=== PATIENT | female | born 1975 | race African-American/Black ===

== ENCOUNTER 2023-06-10 18:39 | Emergency (ER) | payer OTHER ==
[2023-06-10] MEDS ORDERED: Ipratropium/Albuterol 3 ML NEB ONE ×2 (18:51→19:00)
[2023-06-10] MEDS ORDERED: predniSONE 20 MG TAB ONE (19:06)
[2023-06-10] MEDS ORDERED: Magnesium 2 GM/50 ML BAG (IN WATER) ONE (19:07)
[2023-06-10 19:42] LABS: BHCG - Serum Negative (NEGATIVE); Pregs Control Background? CLEAR/WHITE (CLR/WHITE); Pregs Control Bar Appear? YES (CONTROL BAR)
[2023-06-10 19:45] LABS: #Basophils 0.1 10x3/uL (0.0-0.2); #Eosinphils 0.5 10x3/uL (0.0-0.5); #Monocytes 0.6 10x3/uL (0.0-1.1); #Neutrophils 3.7 10x3/uL (1.5-8.4); %Basophils 0.9 % (0.0-2.0); %Eosinophils 7.9 % (0.0-6.0); %Lymphocytes 28.6 % (18.0-47.0); %Monocytes 8.6 % (0.0-10.0); %Neutrophils 53.9 % (40.0-75.0); Hematocrit 32.6 % (34.9-44.5); Hemoglobin 10.5 g/dL (12.0-15.5); Mean Corpuscular HGB CONC 32.2 g/dL (32.0-36.0); Mean Corpuscular Hemoglobin 24.9 pg (27.0-33.0); Mean Corpuscular Volume 77.3 fl (81.6-98.3); Mean Platelet Volume 11.2 fl (7.4-10.4); Platelet Count 217 10x3/uL (150-450); RBC Distribution Width 15.7 % (11.5-14.5); Red Blood Cell (RBC) Count 4.22 10x6/uL (3.90-5.03); White Blood Cell (WBC) Count 6.9 10x3/uL (3.5-10.5)
[2023-06-10 19:48] LABS: ALT (SGPT) 12 U/L (8-55); AST (SGOT) 19 U/L (5-34); Albumin 4.2 g/dL (3.5-5.0); Alkaline Phosphatase 92 U/L (40-110); Anion Gap 14 mmol/L (10-20); BUN (Urea Nitrogen) 11 mg/dL (7.0-18.7); Bilirubin, Total 0.3 mg/dL (0.2-1.2); Calc. Creatinine Clearance 0 mL/min (70-130); Calcium 9.1 mg/dL (7.8-10.44); Carbon Dioxide 23 mmol/L (22-29); Chloride 105 mmol/L (98-107); Estimated GFR 67; Globulin 3.1 g/dL (2.4-3.5); Glucose 90 mg/dL (70-105); Potassium 3.8 mmol/L (3.5-5.1); Protein, Total 7.3 g/dL (6.0-8.3); Sodium 138 mmol/L (136-145)
[2023-06-10 19:51] LABS: Troponin I Less than 0.010 ng/mL (< 0.028)
[2023-06-10 20:04] LABS: Influenza A by NAA Not Detected (NotDetected); Influenza B by NAA Not Detected (NotDetected); SARS-CoV-2 NAA Rapid Test Not Detected (NotDetected)
== END 2023-06-10 20:18 | disposition home or self-care (01) ==
LOC: CSHERS 18:39
DX: J45.901 Unspecified asthma with (acute) exacerbation (principal); D64.9 Anemia, unspecified; R03.0 Elevated blood-pressure reading, without diagnosis of hypertension
CPT/HCPCS: 71045; 80053; 84484; 84703; 85025; 93005; 94640; 96365; J3475; J7512; J7620

== ENCOUNTER 2023-08-08 15:54 | Emergency (ER) | payer OTHER ==
[2023-08-08] MEDS ORDERED: Ipratropium Bromide 2.5 ml Neb ONE ×2 (16:03→16:14)
[2023-08-08] MEDS ORDERED: Albuterol 2.5 MG (0.5 mL) NEB ONE (16:03)
[2023-08-08] MEDS ORDERED: Albuterol 2.5 MG (3 mL) NEB ONE (16:05)
[2023-08-08] MEDS ORDERED: methylPREDNISolone Sod Succ/PF 125 MG/2 ML VIAL ONE (16:07)
== END 2023-08-08 18:24 | disposition home or self-care (01) ==
LOC: CSHERS 15:54
DX: J45.901 Unspecified asthma with (acute) exacerbation (principal)
CPT/HCPCS: 71045; 96374; J2930; J7611

== ENCOUNTER 2023-12-16 13:38 | Emergency (ER) | payer OTHER | END 2023-12-16 17:25 | disposition home or self-care (01) | LOC: CSHERS 13:38 | DX: M77.32 Calcaneal spur, left foot (principal); M76.62 Achilles tendinitis, left leg; I10 Essential (primary) hypertension | CPT/HCPCS: 99283 ==

== ENCOUNTER 2024-01-31 15:01 | Emergency (ER) | payer OTHER ==
[2024-01-31] MEDS ORDERED: Ondansetron PF 4 MG/2 ML Vial ONE (15:20)
[2024-01-31] MEDS ORDERED: Magnesium 2 GM/50 ML BAG (IN WATER) ONE (15:21)
[2024-01-31] MEDS ORDERED: Dexamethasone 10 MG/ML VIAL ONE (15:21)
[2024-01-31] MEDS ORDERED: Aspirin Chewable 81 MG TAB ONE (15:21)
[2024-01-31] MEDS ORDERED: Ipratropium/Albuterol 3 ML NEB ONE (15:26)
[2024-01-31 15:44] LABS: #Basophils 0.06 10x3/uL (0.0-0.2); #Eosinophils 0.51 10x3/uL (0.0-0.5); #Monocytes 0.39 10x3/uL (0.0-1.1); #Neutrophils 2.62 10x3/uL (1.5-8.4); %Basophils 1.2 % (0.0-2.0); %Eosinophils 9.8 % (0.0-6.0); %Lymphocytes 30.8 % (18.0-47.0); %Monocytes 7.5 % (0.0-10.0); %Neutrophils 50.5 % (40.0-75.0); Hematocrit 33.7 % (34.9-44.5); Hemoglobin 10.8 g/dL (12.0-15.5); Mean Corpuscular Hemoglobin 24.9 pg (27.0-33.0); Mean Corpuscular Volume 77.6 fL (81.6-98.3); Mean Platelet Volume 10.9 fL (7.4-10.4); Platelet Count 231 10x3/uL (150-450); RBC Distribution Width 17.9 % (11.5-14.5); Red Blood Cell (RBC) Count 4.34 10x6/uL (3.90-5.03); White Blood Cell (WBC) Count 5.2 10x3/uL (3.5-10.5)
[2024-01-31 16:08] LABS: BHCG - Serum Negative (NEGATIVE); Pregs Control Background? CLEAR/WHITE (CLR/WHITE); Pregs Control Bar Appear? YES (CONTROL BAR)
[2024-01-31 16:16] LABS: ALT (SGPT) 13 U/L (8-55); AST (SGOT) 24 U/L (5-34); Albumin 4.3 g/dL (3.5-5.0); Alkaline Phosphatase 94 U/L (40-110); Anion Gap 16 mmol/L (10-20); BUN (Urea Nitrogen) 10 mg/dL (7.0-18.7); Bilirubin, Total 0.3 mg/dL (0.2-1.2); Calc. Creatinine Clearance 0 mL/min (70-130); Calcium 10.1 mg/dL (7.8-10.44); Carbon Dioxide 25 mmol/L (22-29); Chloride 101 mmol/L (98-107); Estimated GFR 59; Globulin 3.6 g/dL (2.4-3.5); Glucose 96 mg/dL (70-105); Potassium 3.6 mmol/L (3.5-5.1); Protein, Total 7.9 g/dL (6.0-8.3); Sodium 138 mmol/L (136-145)
[2024-01-31 16:22] LABS: Troponin I Less than 0.010 ng/mL (< 0.028)
[2024-01-31 18:36] LABS: Troponin I Less than 0.010 ng/mL (< 0.028)
== END 2024-01-31 18:49 | disposition home or self-care (01) ==
LOC: CSHERS 15:01
DX: J45.901 Unspecified asthma with (acute) exacerbation (principal); R07.89 Other chest pain; I10 Essential (primary) hypertension
CPT/HCPCS: 36415; 71045; 80053; 84484; 84703; 85025; 87428; 93005; 96365; 96375; J1100; J2405; J3475; J7620

== ENCOUNTER 2025-02-23 17:36 | Emergency (ER) | payer OTHER ==
[2025-02-23] MEDS ORDERED: Ipratropium Bromide 2.5 ml Neb ONE ×2 (18:04→18:09)
[2025-02-23] MEDS ORDERED: Albuterol 2.5 MG (0.5 mL) NEB ONE ×2 (18:04→18:06)
[2025-02-23] MEDS ORDERED: Albuterol 2.5 MG (3 mL) NEB ONE (18:09)
[2025-02-23] MEDS ORDERED: Dexamethasone 10 MG/ML VIAL ONE (18:14)
== END 2025-02-23 19:02 ==
LOC: CSHERS 17:36
DX: J45.901 Unspecified asthma with (acute) exacerbation (principal); I10 Essential (primary) hypertension; E03.9 Hypothyroidism, unspecified; Z79.890 Hormone replacement therapy; Z79.899 Other long term (current) drug therapy
CPT/HCPCS: 71045; 93005; 94640; J1100; J7611; J7644